=== PATIENT | male | born 1960 | race Caucasian/White ===

== ENCOUNTER 2025-02-23 12:37 | Emergency (ER) | payer MEDICARE, SELFPAY ==
[2025-02-23 12:57] VITALS: BP 152/96; PULSE 76; RESP 16; TEMP 36.6; O2SAT 99
--- NOTE | 2025-02-23 13:17 | ED_ITS ---
HPI - Ear Problem General Chief complaint: Ear Stated complaint: Ear Pain patient presents to the [facility] with complaints of decreased hearing and drainage from the ear. Patient noted he does wear hearing aids but feels like the ear drum may be ruptured. Noted using an alcohol and vinegar rinse to the left ear without relief of symptoms. Does note some sinus symptoms which are not abnormal for does use daily medications to control this. Patient reports lying here to visit family and symptoms worsen after flying. Denies fever, chills, body aches, dizziness, nausea, vomiting diarrhea, sore throat. Related Data Home Medications ?Medication ?Instructions ?Recorded ?Confirmed ?Last Taken ?Type atorvastatin 20 mg tablet (Lipitor) 20 mg PO DAILY 02/23/25 Unknown History lisinopril 10 mg tablet 10 mg PO DAILY 02/23/2502/01 Unknown History lisinopril 20 mg tablet 20 mg PO DAILY 02/23/2502/01 Unknown History Allergies Allergy/AdvReac Type Severity Reaction Status Date / Time shellfish derived Allergy Severe Unknown Verified 02/23/25 13:21 Review of Systems Constitutional: Constitutional: Reports as per HPI, Denies chills, Denies fatigue, Denies fever(s) and Denies weakness Eyes: Eyes: Reports no additional eye complaints ENT: Reports as per HPI, Denies vertigo, Denies dizziness, Reports nasal congestion and Denies sore throat Comments: Left ear decreased hearing and fullness. minimal symptoms in right ear Cardiovascular: Cardiovascular: Reports no additional cardiovascular complaints Respiratory: Respiratory: Reports as per HPI, Denies chest congestion, Reports cough ( minimal), Denies dyspnea and Denies wheezing Gastrointestinal: Gastrointestinal: Reports no additional gastrointestinal complaints Genitourinary: Genitourinary: Reports no additional male genitourinary complaints Musculoskeletal: Musculoskeletal: Reports no additional musculoskeletal complaints Integumentary/Breasts: Skin/Breast: Reports as per HPI, Denies erythema, Denies rash and Denies skin ulcer Neurologic: Reports as per HPI, Denies vertigo, Denies dizziness, Denies headache(s) and Denies weakness Psychiatric: Psychiatric: Reports no additional psychiatric complaints Endocrine: Endocrine: Reports no additional endocrine complaints Hematologic/Lymphatic: Hematologic/Lymphatic: Reports no additional hematologic/lymphatic complaints Allergic/Immunologic: Allergic/Immunologic: Reports as per HPI Comments: seasonal allergies Exam Const: General: healthy appearing and no acute distress Nutritional Appearance: well nourished Orientation/consciousness: patient oriented x3 Limitations: no limitations HENMT: Head: normal to inspection Ears: external ears normal and TM's abnormal bilaterally Face/Nose/Sinus: Normal external nose present, Normal nares present and no nasal discharge noted Face and sinus: normal facial exam and sinuses nontender Mouth: Yes Normal oral and palatal mucosa present, Yes lip normal and Yes moist mucous membranes Throat: posterior oropharynx normal Other: right TM bulging with pronounce loss of bony landmarks and cloudy fluid. No erythema left TM moderate erythema with rupture at 7 o'clock and purulent green Drainage. Neck: Neck: normal visual inspection and lymphadenopathy ( left submandibular and anterior cervical) Resp: Effort & Inspection: normal respiratory effort Auscultation: clear to auscultation bilaterally Cardio: Rate: regular rate Rhythm: regular rhythm Skin: General skin exam: normal color Rashes: no rashes Wounds: no wounds Neuro: General: patient oriented x3 Speech: normal speech Gait exam (Neuro): Normal gait present Psych: Mental Status: mental status grossly normal Affect: normal affect Attitude: cooperative Course Course Level of Care: Express Care Visit Vital Signs Vital signs: Vital Signs Temperature 97.9 F 02/23/25 12:57 Pulse Rate 76 02/23/25 12:57 Respiratory Rate 16 02/23/25 12:57 Blood Pressure 152/96 H 02/23/25 12:57 Pulse Oximetry 99 02/23/25 12:57 Temperature 97.9 F 02/23/25 12:57 Pulse Rate 76 02/23/25 12:57 Respiratory Rate 16 02/23/25 12:57 Blood Pressure 152/96 H 02/23/25 12:57 Pulse Oximetry 99 02/23/25 12:57 [facility] Narrative Medical decision making narrative: AOM bilateral, rupture left The patient was evaluated by myself in the express care. History is obtained from patient who is an independent historian and physical exam was performed. Available medical records were reviewed at this time. Exam findings show no acute concerns or changes; patient is non-toxic appearing and is in no distress. Patient is appropriate for outpatient treatment and follow-up. I have evaluated and discussed social determinants of health with the patient that could potentially impact subsequent diagnosis and treatment plans. Differential diagnosis and treatment plan were discussed with the patient. Patient agrees with discussion and after shared medical decision making agrees with plan of care. All questions were answered to the patient's satisfaction. Differential Diagnosis Differential Diagnosis: Influenza, sinusitis, upper respiratory infection, COVID, strep, pharyngitis Medical Records I have reviewed the following patient records and this information was taken into consideration when formulating the assessment and plan.: previous labs, previous ER visits, previous hospitalizations and previous clinic visits Discharge Plan Discharge Clinical Impression: Acute otitis media, bilateral, Attic perforation of tympanic membrane of left ear Patient Disposition: Home Condition: Stable Instructions: Antibiotic Form, How to Use Ear Drops (ED), Ear Infection (ED) Additional Instructions: take the antibiotics until gone. May use probiotics or yogurt daily to help with upset stomach /diarrhea with antibiotic use. May use Tylenol and ibuprofen to help with pain or fever. May use warm compresses to the outside of the ear to help with pain. Can also use Sudafed and Flonase nasal spray to help with symptoms associated with ear infection and help the ears drain. Follow-up with primary care physician if symptoms not improving or worsen. -Ear drops as directed for 7-10 days until the pain and swelling are gone. -When administer drug into the affected ear; make sure to ly down with the affected ear facing upward, message the ear canal to help the drops reach the medial end of the canal, then remain in that position for at least 5 mintues. -Avoid using cotton tipped applicator for ears cleaning -Avoid exposing swimming or exposing the affected ear to water during the treatment period Take or alternate tylenol or ibuprofen every 4 - 6 hours if needed for pain. Follow up with primary care provider if condition is not improving in 7 days or sooner if there is new concern. Patient Language: Afghan Prescriptions: New amoxicillin 875 mg tablet 875 mg PO Q12H Qty: 20 0RF ofloxacin 0.3 % drops 10 drp LEFT EAR BID 7 Days Qty: 10 0RF No Action lisinopril 20 mg tablet 20 mg PO DAILY atorvastatin [Lipitor] 20 mg tablet 20 mg PO DAILY lisinopril 10 mg tablet 10 mg PO DAILY Follow-up/Referrals: PHYSICIAN,PUBLIC HEALTH ANALYST [Primary Care Provider, Internal Medicine] Time of Disposition: 13:20
== END 2025-02-23 13:25 | disposition home or self-care (01) ==
PROVIDERS: Emergency Provider Nurse Practitioner Family
DX: H66.93 Otitis media, unspecified, bilateral (principal); H72.12 Attic perforation of tympanic membrane, left ear
CPT/HCPCS: 99203; G0463